=== PATIENT | female | born 1980 | race Caucasian/White ===

== ENCOUNTER 2016-09-13 19:57 | Emergency (ER) | payer BC, OTHER ==
[~2016-09-13] VITALS: Ht 170.2 cm; Wt 106.6 kg
--- NOTE | ~2016-09-13 | CT4 ---
[facility] A Service of [facility] RADIOLOGY TEXT RESULTS PATIENT: EARL REYES LOCATION: SED : 80 UNIT #: [id number] AGE: [address]: Deondre Patel MD SEX: F ORDER DR: [id number] [place] [id number] E MR#: [id number] #: [id number] NAME: EARL REYES : 1980 SEX: F STUDY DATE/TIME: 09/13/2016 21:18 UNIT: SED ROOM: STUDY DESCRIPTION: CT Abd and Pelv Wo Cont Attending Physician: Deondre Patel M.D. Ordering Physician: Deondre Patel M.D. Primary Care Physician: Doroteo Scott M.D. MEDICAL IMAGING REPORT This report is preliminary unless electronic signature is present. EXAM CT abdomen and pelvis without contrast. Date: 09/13/2016 HISTORY 36-year-old female with left flank pain for 2 days. History of kidney stones. Previous appendectomy, hysterectomy, cholecystectomy. COMPARISON CT abdomen and pelvis without contrast 04/28/2016. PROCEDURE 3 mL noncontrast axial images through the abdomen and pelvis. Enteric contrast not administered. Sagittal and coronal reformatted images obtained. This CT exam was performed with one or more of the following radiation dose reduction techniques: automatic exposure control, adjustment of mA and/or kV according to patient size, and iterative reconstruction. FINDINGS Abdomen findings: No renal or ureteral calculus, hydronephrosis, hydroureter or perinephric inflammation is seen on either side. Gastric band device is in place. No acute airspace disease changes are seen within the lower lungs. Benign calcified granulomatous changes are present within the right hilum and within the mediastinum. Cholecystectomy. Noncontrast appearance of the liver, spleen, pancreas, adrenals is within normal limits. Appendectomy. Limited evaluation of bowel due to lack of enteric contrast, but no focal bowel inflammation is appreciated. [facility] A Service of [facility] RADIOLOGY TEXT RESULTS PATIENT: REYES,EARL LOCATION: SED : 80 UNIT #: [id number] AGE: [address]: Deondre Patel MD SEX: F ORDER DR: Pelvis findings: Hysterectomy. Urinary bladder and rectum normal. Benign pelvic phleboliths incidentally noted. No acute osseous abnormalities are identified. IMPRESSION 1. No acute findings in the abdomen and pelvis. 2. No urinary tract stone is identified. Previously described right renal stones on 04/28/2016 are no longer visualized. 3. Appendectomy, cholecystectomy, hysterectomy, gastric band device in place. Dictated by... Alba Lanier M.D. THIS IS AN ELECTRONICALLY VERIFIED REPORT Alba Lanier M.D. at 09/14/2016 9:42 PM LLH/gz TD: 09/14/2016 12:59 JOB #: [id number] MEDICAL IMAGING REPORT Page 1 of 1
[~2016-09-13 19:57] MED LIST: ALLOPURINOL PO; AMITRYPTYLINE; AMITRYPTYLINE PO; BACLOFEN10 MG PO; BACTRIM PO; BLOOD PRESSURE MED PO; FLAGYL PO; GABAPENTIN PO; IBUPROFEN800 MG PO; MORGIDOX100 MG PO; MOTRIN600 M2 PO; NAPROSYN500 MG PO; NEURONTIN PO; NEURONTIN800 MG DOB; NEURONTIN800 MG PO; NICOTINE PATCH1 EACH; NORCO 10/3251 TAB PO; NORVASC; NORVASC PO; NORVASC10 MG PO; OMEPRAZOLE20 M2 PO; PHENTERMINE PO; PREDNISONE PO; PREMARIN; PREMARIN PO; PREMARIN1.25 MG PO; ULTRAM PO; ZOFRAN ODT4 MG/UDTAB PO; ZPAK PO; ZYLOPRIM100 MG; ZYLOPRIM100 MG DOB
[2016-09-13] MEDS ORDERED: PREMARIN1.25 MG PO (20:10)
[2016-09-13] MEDS ORDERED: GABAPENTIN800 MG PO (20:10)
[2016-09-13] MEDS ORDERED: AMITRYPTYLINE PO (20:10)
[2016-09-13] MEDS ORDERED: PROPRANOLOL HC120 MG PO (20:11)
[2016-09-13] MEDS ORDERED: TRAMADOL HCL100 M1 PO (20:11)
[2016-09-13 21:17] LABS: URINE SOURCE CLEAN CATCH
[2016-09-13 21:18] LABS: BASOPHIL# 0.1 X10e3 (0-0.3); BASOPHIL% 0.8 % (0-2.5); EOSINOPHIL# 0.3 X10e3 (0-0.7); EOSINOPHIL% 3.3 % (0.0-7.0); HEMATOCRIT 36.4 % (35.0-45.0); HEMOGLOBIN 12.6 gm/dL (12.0-16.0); LYMPHOCYTE# 2.2 X10e3 (1.0-3.5); LYMPHOCYTE% 23.3 % (17.0-45.0); MEAN CELL VOLUME 91.4 FL (83-96); MEAN CORPUSCULAR HEMOGLOBIN 31.6 PG (28-34); MEAN CORPUSCULAR HGB CONC 34.6 g/dL (30-36); MEAN PLATELET VOLUME 8.9 FL (6.5-11.5); MONOCYTE# 0.4 X10e3 (0-1.0); MONOCYTE% 4.7 % (3.0-12.0); NEUTROPHIL# 6.3 X10e3 (1.5-7.1); NEUTROPHIL% 67.9 % (40-75); PLATELET COUNT 205 X10e3 (140-420); RED BLOOD COUNT 3.98 X10e (3.90-5.30); RED CELL DISTRIBUTION WIDTH 13.7 % (11.0-15.5); WHITE BLOOD COUNT 9.3 X10e3 (4.0-10.5)
[2016-09-13 21:19] LABS: URINE APPEARANCE CLEAR; URINE BILIRUBIN NEG (NEG); URINE BLOOD TRACE-INTACT (NEG); URINE COLOR YELLOW; URINE GLUCOSE NEG (NORM); URINE KETONE NEG (NEG); URINE LEUKOCYTE ESTERASE NEG (NEG); URINE NITRATE NEG (NEG); URINE PROTEIN NEG (NEG); URINE SPECIFIC GRAVITY 1.015 (1.003-1.035); URINE UROBILINOGEN 0.2 MG/DL (NORM)
[2016-09-13 21:21] LABS: DIFF IND NO
[2016-09-13 21:24] LABS: MICRO INDICATED? YES
[2016-09-13 21:25] LABS: CULTURE INDICATED? NO; URINE BACTERIA NEG (NEG); URINE SQUAMOUS EPITHELIAL CELL OCCAS /[HPF]; URINE WBC 0-2 /[HPF] (0-5)
[2016-09-13 21:37] LABS: ALBUMIN SERUM 3.9 g/dL (3.5-5.0); ALKALINE PHOSPHATASE 103 U/L (32-92); ALT (SGPT) 18 U/L (10-40); AST (SGOT) 21 U/L (10-42); BILIRUBIN, DIRECT <0.1 mg/dL (0.0-0.2); BILIRUBIN,INDIRECT 0.1 mg/dL (0.0-0.9); BILIRUBIN,TOTAL 0.2 mg/dL (0.2-2.0); BLOOD UREA NITROGEN 6 mg/dL (9-23); CALCIUM SERUM 8.8 mg/dL (8.4-10.2); CARBON DIOXIDE 26 mmol/L (22-31); CHLORIDE 105 mmol/L (100-111); CREATININE SERUM 0.8 mg/dL (0.6-1.4); GLOM FILT RATE Estimated 94.9 mL/min (>60); GLUCOSE FASTING 91 mg/dL (70-110); LIPASE 28 U/L (22-51); POTASSIUM 3.6 mmol/L (3.5-5.1); PROTEIN TOTAL SERUM 7.4 g/dL (6.0-8.3); SODIUM 139 mmol/L (135-145)
== END 2016-09-13 22:47 | disposition home or self-care (01) ==
LOC: SED 19:57
PROVIDERS: Emergency Medicine
DX: M54.5 Low back pain (principal); F17.210 Nicotine dependence, cigarettes, uncomplicated; Z87.442 Personal history of urinary calculi; Z90.710 Acquired absence of both cervix and uterus; Z90.89 Acquired absence of other organs; Z79.899 Other long term (current) drug therapy; Z88.1 Allergy status to other antibiotic agents; Z88.5 Allergy status to narcotic agent
CPT/HCPCS: 36415; 74176; 80048; 80076; 81003; 83690; 85025; 96361; 96374; 96375; 96376; 99284; J1170; J1885; J2405; J2550